=== PATIENT | female | born 1955 | race Hispanic/Latino ===

== ENCOUNTER 2016-08-09 09:06 | Day surgery (SDC) | payer MEDICARE ==
--- NOTE | 2016-08-09 09:52 | Anesthesia Consultation ---
Anesthesia Consult and Med Hx Date of service: 08/09/16 (Scheduled for Cysto with Dr. Toscano) - Airway Anesthetic Teeth Evaluation: Good ROM Head & Neck: Adequate Mental/Hyoid Distance: Adequate Mallampati Class: Class II Intubation Access Assessment: Probably Good - Pulmonary Exam CTA: Yes - Cardiac Exam Cardiac Exam: RRR - Pre-Operative Health Status ASA Pre-Surgery Classification: ASA2 Proposed Anesthetic Plan: General - Pre-Anesthesia Comment Pre-Anesthesia Comments: No previous anesthesia complications. NPO since midnight. Took BB and steroid this am. - Pulmonary Hx Smoking: No Hx Asthma: Yes (PRN INHALER rarely used) Hx Sleep Apnea: No (CHRISTY PRE SCREEN HIGH RISK) - Cardiovascular System Hx Hypertension: Yes (X 20 YRS, on Atenolol) Hx Coronary Artery Disease: No Hx Valvular Heart Disease: Yes (asymptomatic MVP) Hx Heart Murmur: Yes (1/6 systolic) - Central Nervous System Hx Neuromuscular Disorder: Yes (Fibromyalgia) Hx Seizures: Yes (hx of Epilepsy- last seizure 1983) CVA: No Hx Psychiatric Problems: Yes (Depression- no meds) - Gastrointestinal Hx Gastroesophageal Reflux Disease: No - Endocrine Hx Renal Disease: No Hx Non-Insulin Dependent Diabetes: Yes Hx Thyroid Disease: No - Hematic Hx Anemia: Yes - Other Systems Hx Cancer: No Hx Obesity: No - Additional Comments Anesthesia Medical History Comments: Hx of Fibromyalgia and Lupus- on Medrol 8mg daily. Took Medrol this am.
[2016-08-09] MEDS ORDERED: PEPCID PO NR (10:00)
[2016-08-09] MEDS ORDERED: VERSED IV NR (10:00)
[2016-08-09] MEDS ORDERED: NACL 0.9% 1000 ML 1,000 ML IV SCH (10:00)
[2016-08-09 10:05] LABS: Hematocrit 40.6 % (30.3-42.9); Hemoglobin 13.5 gm/dl (10.1-14.3)
[2016-08-09 10:25] LABS: Blood Urea Nitrogen 21 mg/dL (7-17); Calcium 8.8 mg/dL (8.4-10.2); Carbon Dioxide 27 mmol/L (22-30); Chloride 103.9 mmol/L (98-107); Glucose 88 mg/dL (65-100); Potassium 4.1 mmol/L (3.6-5.0); Sodium 142 mmol/L (137-145)
[2016-08-09 10:27] LABS: Anion Gap 15 mmol/L
[2016-08-09] MEDS ORDERED: DIPRIVAN 10 MG/ML IV ONE (10:44)
[2016-08-09] MEDS ORDERED: DILAUDID ONE (10:45)
[2016-08-09] MEDS ORDERED: XYLOCAINE MPF 2% ONE (10:48)
--- NOTE | 2016-08-09 11:04 | Anesthesia Day of Surgery ---
Anesthesia Day of Surgery - Day of Surgery Patient Examined: Yes Patient H&P Reviewed: Yes Patient is NPO: Yes Beta Blockers: Yes
[2016-08-09] MEDS ORDERED: GARAMYCIN 80 MG in NACL 0.9% 100 ML IV SCH (11:15)
--- NOTE | 2016-08-09 11:21 | XRay Report ---
AP ABDOMEN: HISTORY: Kidney stone. FINDINGS: Single view of the abdomen is presented. A right ureteral stent is in adequate position. The renal shadows are slightly obscured by overlying bowel but appear normal size. 5 mm calcification is suggested overlying the inferior right kidney. No obvious calcifications overlying the course of the ureters. IMPRESSION: Right nephrolithiasis.
[2016-08-09] MEDS ORDERED: ePHEDrine SULFATE ONE (11:58)
[2016-08-09] MEDS ORDERED: ANCEF/STERILE WATER 2 GM/20 ML IV NR (12:00)
[2016-08-09] MEDS ORDERED: GARAMYCIN/NS 80 MG/100 ML 100 ML IV SCH (12:00)
[2016-08-09] MEDS ORDERED: OMNIPAQUE 300 MG/50 ML (CATH LAB) IV ONE (12:02)
[2016-08-09] MEDS ORDERED: WATER FOR IRRIG STERILE IR ONE (12:03)
[2016-08-09] MEDS ORDERED: ZOFRAN ONE (12:34)
[2016-08-09] MEDS ORDERED: NACL P/F VIAL (10 ML) 10 ML ONE (12:35)
--- NOTE | 2016-08-09 12:52 | Post Operative Note ---
Date of procedure: 08/09/16 Pre-op diagnosis: r ureteral and renal stones Post-op diagnosis: same Findings: as above Procedure: cysto ureteroscopy laser Anesthesia: GETA Surgeon: KIM ACKERMAN Estimated blood loss: minimal Pathology: list (stones) Specimen disposition: given to patient/family Condition: stable Disposition: PACU
--- NOTE | 2016-08-09 12:54 | Discharge Summary ---
Short Stay Discharge Plan Activity: other (no strain ing ) Weight Bearing Status: Full Weight Bearing Diet: low fat, low salt Special Instructions: other (inc fluids ) Durable Medical Equipment Needed Upon Discharge: other (pt has j stent ) Follow up with: ARMAAN BELCHER MD [Primary Care Provider] - 7 Days KIM ACKERMAN MD [Staff Physician] - 14 Days
--- NOTE | 2016-08-09 13:26 | Post Anesthesia Evaluation ---
- Post Anesthesia Evaluation Patient Participated: Yes Airway Patent: Yes Stable Respiratory Function: Yes Nausea/Vomiting: No Temp > 96.8F: Yes Pain Manageable: Yes Adequeate Hydration: Yes Anesthesia Complications: No Block Receding Appropriately: Not Applicable Patient on Ventilator: No
--- NOTE | 2016-08-09 13:27 | Operative Report ---
PREOPERATIVE DIAGNOSIS: Renal stones, previous lithotripsy. POSTOPERATIVE DIAGNOSES: Multiple ureteral and renal stones. PROCEDURE: Cystoscopy, right retrograde, right lower ureteroscopy with the rigid scope and multiple stone extractions with flexible ureteroscopy of the UPJ stone and a renal caliceal stone and retrograde. SURGEON: Kenneth Toscano MD ANESTHESIA: General. FINDINGS: This woman with a large stone burden. She now presents for followup treatment after she has multiple steinstrasse along the stent. DESCRIPTION OF PROCEDURE: The patient was brought to the operating room and placed on the operating table. Following induction of anesthesia, she was medicated with antibiotics, prepped and draped in the usual sterile fashion. The stent was removed from the urethra and a wire coiled up through the stent. Rigid ureteroscopy was done without need for dilatation and 4 stones were removed at the UVJ. At that point, the retrograde showed what looked like there may be a stone at the UPJ and caliceal stone. The wire was left intact and flexible ureteroscopy showed the stone, which was pushed in the lower pole morteza. There were two stones there. They were lasered at 10 rubio with the 200 fiber. Patient tolerated the procedure well. There were multiple fragments. These were not extracted. A 7-Turkmen double-J 26 cm coiled in the kidney and bladder, we left the string. She was brought to recovery room in stable condition. Family notified. JOB# [id number] ARIELLA/MANISH
[2016-08-09 13:52] VITALS: BP 125/66
--- NOTE | 2016-08-09 15:06 | Fluoroscopy Report ---
Right retrograde urogram. 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 Subsequent opacification of the collecting system demonstrates filling defects in the region of the UPJ consistent with multiple stones. There is moderate pelvocaliectasis. These were seen at ureteroscopy and laser lithotripsy was performed, and the stones were extracted. On the final images, a new double ureteral right stent is in satisfactory position.
== END 2016-08-09 14:05 | disposition home or self-care (01) ==
LOC: OR 09:06
PROVIDERS: ATTEND Urology
DX: N20.0 Calculus of kidney (principal); N20.1 Calculus of ureter; J45.909 Unspecified asthma, uncomplicated; K21.9 Gastro-esophageal reflux disease without esophagitis; I10 Essential (primary) hypertension; E78.00 Pure hypercholesterolemia, unspecified; E11.9 Type 2 diabetes mellitus without complications; M06.9 Rheumatoid arthritis, unspecified; D64.9 Anemia, unspecified; F32.9 Major depressive disorder, single episode, unspecified; Z96.651 Presence of right artificial knee joint; Z98.51 Tubal ligation status; Z98.890 Other specified postprocedural states; Z98.49 Cataract extraction status, unspecified eye
CPT/HCPCS: 36415; 52352; 52356; 74000; 74420; 80048; 82962; 85014; 85018; A4217; C1726; C1758; C1769; C2617; J0690; J1170; J1580; J2250; J2405; J2704; J7030; Q9967